=== PATIENT | female | born 1970 | race Caucasian/White ===

== ENCOUNTER 2017-05-22 23:36 | Emergency (ER) | payer OTHER ==
[2017-05-22] MEDS ORDERED: Sodium Chloride 0.9% 10 ML Syringe FLUSH PRN (23:43)
--- NOTE | 2017-05-22 23:48 | EDM.PDOC ---
ED HPI GENERAL MEDICAL PROBLEM - General Chief Complaint: Genitourinary Problem Stated Complaint: RIGHT FLANK PAIN Time Seen by Provider: 05/22/17 23:42 Source of Information: Reports: Patient, RN, RN Notes Reviewed History Limitations: Reports: No Limitations - History of Present Illness INITIAL COMMENTS - FREE TEXT/NARRATIVE: Patient presents to the emergency room at [facility] complaining of severe right flank pain, dysuria, and hyperventilation. The patient states her pain started around 10 PM this evening. The patient states she started having dysuria and thought she had UTI symptoms. Around 10:30 this evening, the patient states the right flank pain started. The patient is hyperventilating from the pain. The patient complains of left and right upper extremity numbness. The patient denies any nausea vomiting or diarrhea. The patient does not think she has any hematuria. The patient denies any pelvic pain. No abdominal pain. The patient's only history is cervical cancer. Onset: Today, Sudden Onset Date: 05/22/17 Onset Time: 22:00 Duration: Getting Worse, Waxing/Waning Location: Reports: Back (Right flank) Quality: Reports: Sharp, Stabbing Severity: Moderate Improves with: Reports: None Worsens with: Reports: Movement Context: Denies: Sick Contact, Trauma Treatments DRIVER/GUIDE: Reports: Other (see below) (None) Right Hip Pain Score (Numeric/FACES): 5 - Related Data Allergies Allergy/AdvReac Type Severity Reaction Status Date / Time Sulfa (Sulfonamide Allergy Hives Verified 05/22/17 23:37 Antibiotics) Home Meds: Home Meds Aspirin [Halfprin] 81 mg PO DAILY 05/23/17 [History] Estradiol 1 mg PO DAILY 05/23/17 [History] Levothyroxine [Synthroid] 50 mcg PO DAILY 05/23/17 [History] Lisinopril/Hydrochlorothiazide [Zestoretic 20-25 mg Tablet] 1 each PO DAILY [History] Multivitamin with Minerals [Multiple Vitamin] 1 tab PO DAILY 05/23/17 [History] Omeprazole 20 mg PO DAILY 05/23/17 [History] Ondansetron HCl [Ondansetron] 1 tab PO Q8H PRN 10 Days #30 tablet 05/23/17 [Rx] Tamsulosin HCl [Flomax] 1 tab PO DAILY 7 Days #7 cap.er.24h 05/23/17 [Rx] Venlafaxine [Effexor XR] 75 mg PO DAILY 05/23/17 [History] ED ROS GENERAL - Review of Systems Review Of Systems: See Below Constitutional: Denies: Fever, Chills, Weakness Respiratory: Denies: Shortness of Breath, Cough Cardiovascular: Denies: Chest Pain, Palpitations GI/Abdominal: Denies: Abdominal Pain, Nausea, Vomiting : Reports: Dysuria, Flank Pain. Denies: Frequency, Hematuria Skin: Reports: No Symptoms Neurological: Reports: Numbness (Bilateral upper extremities). Denies: Dizziness, Headache ED EXAM, RENAL/ - Physical Exam Exam: See Below Exam Limited By: No Limitations General Appearance: Alert, Anxious Respiratory/Chest: No Respiratory Distress, Lungs Clear, Normal Breath Sounds Cardiovascular: Normal Peripheral Pulses, Regular Rate, Rhythm GI/Abdominal: Normal Bowel Sounds, Soft, Non-Tender (Female) Exam: Deferred Back Exam: CVA Tenderness (R) Extremities: Normal Inspection, Normal Capillary Refill Neurological: Alert, Oriented Skin Exam: Warm, Dry, Intact, Normal Color Course - Vital Signs Last Recorded V/S: Last Vital Signs Temp 36.2 C 05/22/17 23:41 Pulse 68 05/22/17 23:41 Resp 22 H 05/22/17 23:41 BP 147/115 H 05/22/17 23:41 Pulse Ox 97 05/22/17 23:41 - Orders/Labs/Meds Orders: Active Orders 24 hr Category Date Time Status Abdomen Pelvis wo Cont [CT] Stat Exams 05/22/17 23:42 Taken BASIC METABOLIC PANEL,BMP [CHEM] Stat Lab 05/22/17 23:42 Received UA W/MICROSCOPIC [URIN] Stat Lab 05/23/17 00:01 Received Sodium Chloride 0.9% [Normal Saline] 1,000 ml Med 05/22/17 23:44 Active IV ONETIME Sodium Chloride 0.9% [Saline Flush] Med 05/22/17 23:43 Active 10 ml FLUSH ASDIRECTED PRN Peripheral IV Insertion Adult [OM.PC] Routine Oth 05/22/17 23:43 Ordered Medication Orders Sodium Chloride (Normal Saline) 1,000 mls @ 999 mls/hr IV ONETIME ONE Stop: 05/23/17 00:44 Last Admin: 05/23/17 00:06 Dose: 999 mls/hr Sodium Chloride (Saline Flush) 10 ml FLUSH ASDIRECTED PRN PRN Reason: Keep Vein Open Labs: Laboratory Tests 05/23/17 Range/Units 00:05 WBC 4.4 (4.0-10.0) x10^3/uL RBC 4.07 (4.00-5.50) x10^6/uL Hgb 12.5 (12.0-16.0) g/dL Hct 36.1 (33.0-47.0) % MCV 88.7 (78.0-93.0) fL MCH 30.7 (26.0-32.0) pg MCHC 34.6 (32.0-36.0) g/dL RDW Coeff of Michelle 12.9 (10.0-15.0) % Plt Count 236 (130-400) x10^3/uL Neut % (Auto) 42.5 L (50.0-80.0) % Lymph % (Auto) 44.0 (25.0-50.0) % Brule % (Auto) 10.3 (2.0-11.0) % Eos % (Auto) 2.3 (0.0-4.0) % Baso % (Auto) 0.9 (0.2-1.2) % Meds: Medications Generic Name Dose Route Start Last Admin Trade Name Freq PRN Reason Stop Dose Admin Sodium Chloride 1,000 mls @ 999 mls/hr 05/22/17 23:44 05/23/17 00:06 Normal Saline IV 05/23/17 00:44 999 mls/hr ONETIME ONE Administration Sodium Chloride 10 ml 05/22/17 23:43 Saline Flush FLUSH ASDIRECTED PRN Keep Vein Open Discontinued Medications Generic Name Dose Route Start Last Admin Trade Name Freq PRN Reason Stop Dose Admin Ketorolac Tromethamine 30 mg 05/22/17 23:44 05/23/17 00:10 Toradol IVPUSH 05/22/17 23:45 30 mg ONETIME ONE Administration - Radiology Interpretation Free Text/Narrative:: CT Abd/Pelvis w/o contrast: 3mm obstructing stone in the distal right ureter approximately 1cm proximal to the ureterovesical junction causing hydronephrosis as well as hydroureter on the right See scanned report in EMR CT Results Date: 05/23/17 CT Results Time: 00:11 Departure - Departure Time of Disposition: 00:24 Disposition: Home, Self-Care 01 Condition: Good Clinical Impression: Kidney stone on right side, Hydroureter Hydronephrosis Qualifiers: Hydronephrosis type: with renal calculous obstruction Qualified Code(s): N13.2 - Hydronephrosis with renal and ureteral calculous obstruction - Discharge Information Prescriptions: Ondansetron HCl [Ondansetron] 1 tab PO Q8H PRN 10 Days #30 tablet PRN Reason: Nausea/Vomiting Tamsulosin HCl [Flomax] 1 tab PO DAILY 7 Days #7 cap.er.24h Instructions: Kidney Stones, Hydronephrosis Referrals: Radha Juan PA [Ordering Only Provider] - Forms: ED Department Discharge Additional Instructions: 1. Stay well hydrated and rest 2. Take medication for the full coarse, even if you are feeling better 3. The stone may take several days to pass, try and be patient 4. Use pain medication sparingly as it can make you drowsy 5. LOTS of water 6. If you are not feeling any better in the next 3-4 days, see your Primary 7. Call us with any questions/concerns 8. May use Tylenol for pain; avoid Advil/Motrin/Aleve - Problem List Review Problem List Initiated/Reviewed/Updated: Yes - My Orders Last 24 Hours: My Active Orders 05/22/17 23:42 Abdomen Pelvis wo Cont [CT] Stat BASIC METABOLIC PANEL,BMP [CHEM] Stat 05/22/17 23:43 Sodium Chloride 0.9% [Saline Flush] 10 ml FLUSH ASDIRECTED PRN Peripheral IV Insertion Adult [OM.PC] Routine 05/22/17 23:44 Sodium Chloride 0.9% [Normal Saline] 1,000 ml IV ONETIME 05/23/17 00:01 UA W/MICROSCOPIC [URIN] Stat - Assessment/Plan Last 24 Hours: My Active Orders 05/22/17 23:42 Abdomen Pelvis wo Cont [CT] Stat BASIC METABOLIC PANEL,BMP [CHEM] Stat 05/22/17 23:43 Sodium Chloride 0.9% [Saline Flush] 10 ml FLUSH ASDIRECTED PRN Peripheral IV Insertion Adult [OM.PC] Routine 05/22/17 23:44 Sodium Chloride 0.9% [Normal Saline] 1,000 ml IV ONETIME 05/23/17 00:01 UA W/MICROSCOPIC [URIN] Stat Assessment:: Calculus of Kidney, right Hydronephrosis, right Hydroureter, right Plan: Labs and CAT scan discussed with patient. The patient will be given a prescription for pain medication. The patient will get a prescription for Flomax. I will also start the patient on an antinausea medicine. I discussed the etiology of kidney stones with the patient. This may take a couple days to a couple of weeks for it to resolve. I discussed with the patient that a 3 mm stone is usually nonoperative and needs to pass on its own. I did recommend that if she is not feeling better in the next 3-4 day she should follow-up with her primary. No antibiotics are warranted. I did discuss dietary modifications with the patient. The patient verbalizes understanding of discharge instructions. All questions were answered.
[2017-05-23] MEDS: Sodium Chloride 0.9% 1,000 ML IV ONE (00:06)
[2017-05-23] MEDS: Ketorolac 30 MG/ML SDV IVPUSH ONE (00:10)
[2017-05-23 00:24] LABS: CHLORIDE,CL 103 mmol/L (98-107); SODIUM,NA 138 mmol/L (136-145)
[2017-05-23] MEDS: Potassium Chloride 20 MEQ Tab.ER PO ONE (00:37)
[2017-05-23] MEDS: Take Home: traMADol 50 MG, 4 Tab Pack PO ONE (00:38)
== END 2017-05-23 00:50 | disposition home or self-care (01) ==
LOC: VM.ED 23:36
DX: N13.2 Hydronephrosis with renal and ureteral calculous obstruction (principal); Z79.82 Long term (current) use of aspirin; Z79.899 Other long term (current) drug therapy; Z88.2 Allergy status to sulfonamides
CPT/HCPCS: 36415; 74176; 80048; 81001; 85025; 96361; 96374; 99284; A9270-GY; J1885; J7030